=== PATIENT | female | born 1960 | race Caucasian/White ===

== ENCOUNTER → 2016-04-13 | Outpatient (CLI) | payer BC | LOC: BHSO 15:50 | DX: F31.9 Bipolar disorder, unspecified (principal) ==

== ENCOUNTER → 2016-07-01 | Outpatient (CLI) | payer BC | LOC: BHSO 13:30 | DX: F31.89 Other bipolar disorder (principal) ==

== ENCOUNTER → 2016-08-13 | Outpatient (CLI) | payer BC | LOC: BHSO 16:17 | DX: F31.73 Bipolar disorder, in partial remission, most recent episode manic (principal) ==

== ENCOUNTER → 2016-09-24 | Outpatient (CLI) | payer BC | LOC: BHSO 14:33 | DX: F31.73 Bipolar disorder, in partial remission, most recent episode manic (principal) ==

== ENCOUNTER → 2016-11-18 | Outpatient (CLI) | payer BC | LOC: BHSO 16:16 | DX: F31.73 Bipolar disorder, in partial remission, most recent episode manic (principal) ==